=== PATIENT | female | born 1960 | race Caucasian/White ===

== ENCOUNTER 2019-10-08 10:30 | Emergency (ER) | payer MEDICARE, SELFPAY ==
--- NOTE | ~2019-10-08 | CT_ITS ---
EXAMINATION: CT abdomen pelvis wo con DATE: 10/08/2019 12:32 INDICATION: Generalized abdominal pain. TECHNIQUE: Computed tomography (CT) of the abdomen and pelvis was performed without intravenous contr ast. Automated exposure control and iterative reconstruction technique were employed. The dose-length product was 1365.13 mGy-cm. COMPARISON: CT abdomen and pelvis 04/26/2017 FINDINGS: The visualized portions of the lung bases demonstrate mild atelectasis. No pleural effusion . The heart size is normal. No pericardial effusion. There is diffuse hepatic steatosis. There is a g allstone in the gallbladder, which is normal in size. The spleen, pancreas, adrenal glands, and kidne ys are normal. There is no urolithiasis. There are no dilated loops of bowel. The appendix is normal. There are no pathologically enlarged lymph nodes. There is no free intraperitoneal fluid. There is a left supraumbilical ventral hernia containing fat. There is a chronic compression fracture of T12 wi th changes of vertebroplasty. There is mild chronic anterior wedging of multiple thoracic vertebral b odies. There is an electrode in the right S3 neural foramina. IMPRESSION: 1. Diffuse hepatic steatosis. 2. Cholelithiasis. No evidence of acute cholecystitis. 3. Left supraumbilical ventral hernia containing fat. Reviewed, dictated and finalized at location A. EUR/MASSEUSE
[2019-10-08 11:16] VITALS: BP 141/79; PULSE 106; RESP 20; TEMP 36.9; O2SAT 96
--- NOTE | 2019-10-08 11:18 | ED.ABDPAIN ---
HPI - Abdominal Pain General Chief Complaint: Abdominal Pain Stated Complaint: Hernia Time Seen by Provider: 10/08/19 11:19 Source: patient and RN notes reviewed Limitations: no limitations History of Present Illness HPI narrative: Patient presents with abdominal pain. Says it seems to be right in the middle of her abdomen above her umbilicus she is concerned that she might have a hernia. She says that she has this swelling when she sits up in the middle upper abdomen. Says that it has been going on for several months. She denies any other associated symptoms. MD elicited complaint: abdominal pain Pertinent past history: none Onset (ago): hour(s) (4) Pain Consistency: constant Location: diffuse Severity: moderate Quality: aching, fullness and dull Radiation: other (Supra Umbilical) Migration to: no migration Exacerbating factors: movement Relieving factors: nothing Associated symptoms: denies other symptoms Related Data Home Medications Medication Instructions Recorded Confirmed cyclobenzaprine 10 mg PO TID 10/08/19 10/08/19 gabapentin 600 mg PO TID 10/08/19 10/08/19 hydroxyzine pamoate 25 mg PO DAILY 10/08/19 10/08/19 magnesium oxide 400 mg PO DAILY 10/08/19 10/08/19 metformin 500 mg PO DAILY 10/08/19 10/08/19 omeprazole 500 mg PO DAILY 10/08/19 10/08/19 sertraline 100 mg PO DAILY 10/08/19 10/08/19 trazodone 50 mg PO HS 10/08/19 10/08/19 Allergies Allergy/AdvReac Type Severity Reaction Status Date / Time eucalyptus Allergy Severe ANAPHYLAXIS Verified 04/11/19 17:10 Penicillins Allergy Mild Rash Verified 04/11/19 17:10 adhesive Allergy Unknown BLISTERS Verified 04/11/19 17:10 diclofenac Allergy Unknown PT DOESNT Verified 04/11/19 17:10 KNOW Iodine and Iodide Containing Allergy Unknown Anaphylaxis Verified 10/08/19 11:05 Produc metaxalone Allergy Unknown PT DOESNT Verified 04/11/19 17:10 KNOW nabumetone Allergy Unknown PT DOESNT Verified 04/11/19 17:10 KNOW peanut Allergy Unknown Swelling Verified 10/08/19 11:05 Contrast Media Allergy Unknown ANAPHYLAXIS Uncoded 04/11/19 17:10 Review of Systems Constitutional: Constitutional: Denies chills and Denies fever(s) Cardiovascular: Cardiovascular: Reports no additional cardiovascular complaints Respiratory: Respiratory: Reports no additional respiratory complaints Gastrointestinal: Gastrointestinal: Denies constipation, Denies diarrhea, Denies nausea and Denies vomiting Genitourinary: Genitourinary: Denies dysuria Musculoskeletal: Musculoskeletal: Reports no additional musculoskeletal complaints Neurologic: Reports system reviewed and no additional complaints, except as documented PMFSH Past Medical History Medical History (Updated 10/08/19 @ 15:49 by Juan Carlos Solis MD) GERD (gastroesophageal reflux disease) Surgical History Surgical History (Updated 10/08/19 @ 13:48 by Juan Carlos Solis MD) H/O knee surgery H/O oophorectomy H/O tubal ligation H/O: hysterectomy History of tonsillectomy Hx of breast reduction, elective Family History Family History Mother Family history of thyroid disease Sibling Diabetes mellitus Other Family history of allergic disorder Social History Social History (Updated 10/08/19 @ 13:49 by Juan Carlos Solis MD) Smoking status: Never smoker Alcohol intake: never Substance use type: marijuana Exam Const: General: healthy appearing, no acute distress and alert Nutritional Appearance: well nourished and obese centrally obese Orientation/consciousness: patient oriented x3 HENMT: Head: normal to inspection Ears: external ears normal General nose exam: Normal external nose present Face and sinus: normal facial exam Mouth: Yes moist mucous membranes Eyes: Conjunctivae: conjunctivae normal Pupils: Equal, round and reactive pupils present EOM: EOMs intact bilaterally Neck: Neck: normal visual inspection Resp: Effort & Inspection:
[2019-10-08 11:57] LABS: Basophils Absolute Auto 0.05 K/mm3 (0.00-0.10); Basophils Percent Auto 0.8 % (0.0-1.0); Eosinophils Absolute Auto 0.22 K/mm3 (0.02-0.50); Eosinophils Percent Auto 3.5 % (1.0-6.0); Hematocrit 38.9 % (35.0-49.0); Hemoglobin 12.6 g/dL (12.0-15.0); Immature Granulocyte Absolute 0.02 K/mm3 (0.00-0.00); Immature Granulocyte Percent A 0.3 % (0.0-0.0); Lymphocytes Absolute Auto 1.62 K/mm3 (1.10-4.50); Lymphocytes Percent Auto 25.5 % (18.0-42.0); Mean Corpuscular HGB Conc 32.4 g/dL (32.0-36.0); Mean Corpuscular Hemoglobin 26.6 pg (27.0-31.0); Mean Corpuscular Volume 82.2 fL (78.0-102.0); Mean Platelet Volume 9.6 fl (9.2-11.8); Monocytes Absolute Auto 0.49 K/mm3 (0.10-0.90); Monocytes Percent Auto 7.7 % (2.0-11.0); Neutrophils Percent Auto 62.2 % (50.0-70.0); Platelet Count Result 234 K/mm3 (150-420); Red Blood Count 4.73 M/mm3 (4.20-5.40); Red Cell Distribution Width 14.1 % (11.6-14.4); White Blood Count 6.4 K/mm3 (4.8-10.8)
[2019-10-08 12:16] LABS: Alanine Aminotransferase 31 U/L (14-59); Albumin Level 3.5 g/dL (3.4-5.0); Alkaline Phosphatase 90 U/L (46-116); Aspartate Amino Transferase 19 U/L (15-37); Bilirubin,Total 0.3 mg/dL (0.00-1.00); Blood Urea Nitrogen 12 mg/dL (7-18); CRP 0.3 mg/dL (0.0-0.9); Carbon Dioxide 25 mmol/L (21-32); Chloride 106 mmol/L (98-108); Estimated CRCL calculation 72 ml/min; Estimated Glomerular Filt Rate > 60; Glucose 90 mg/dL (70-99); Lipase 102 U/L (73-393); Osmolality Calculated 289 mOsm/kg (285-295); Sodium 140 mmol/L (136-145); Total Protein 7.2 g/dL (6.4-8.2)
[2019-10-08 13:01] LABS: Appearance Urine Clear (Clear); Bilirubin Urine Negative (Negative); Color Urine Yellow (Yellow); Glucose Urine UA Negative (Negative); Ketones Urine Negative (Negative); Leukocyte Esterase Ur 1+ (Negative); Nitrate Urine Negative (Negative); Protein Urine Negative (Negative); Urobilinogen Urine 0.2 mg/dL (0.2-1.0)
[2019-10-08 13:07] LABS: Add Urine Microscopic? YES; Blood Urine Trace-Intact (Negative); RBC Urine 0-2 /hpf (0-2)
[2019-10-08 13:08] LABS: Bacteria Urine Trace /hpf; Squamous Epithelial Cell Urine Rare /hpf (Few)
[2019-10-08 13:47] VITALS: BP 130/85; PULSE 71; RESP 18; O2SAT 98
== END 2019-10-08 13:45 | disposition home or self-care (01) ==
PROVIDERS: Emergency Provider Emergency Medicine; PCP Internal Medicine
DX: K43.9 Ventral hernia without obstruction or gangrene (principal)
CPT/HCPCS: 36415; 74176; 80053; 81001; 83690; 85025; 86140; 99283; 99284

== ENCOUNTER 2019-11-25 09:54 | Outpatient (CLI) | payer MEDICARE, SELFPAY ==
--- NOTE | ~2019-11-25 | XR_ITS ---
EXAMINATION: XR ribs LT 2V w CXR 2V DATE: 11/25/2019 10:44 INDICATION: Left chest wall pain post fall TECHNIQUE: Frontal and lateral views of the chest and 3 views of the left ribs were obtained. COMPARISON: 04/11/2019 and 03/08/2014 FINDINGS: No rib fractures identified. Again seen are small lung volumes due in part to moderate thoracic kypho sis with severe spondylosis and chronic mild anterior wedging of a few levels in the midthoracic spin e. Vertebroplasty at a chronic L1 compression fracture. Mild bibasilar atelectasis. No pulmonary amber a, pleural effusion or pneumothorax. Cardiomediastinal silhouette is normal. IMPRESSION: 1. No evident rib fractures. 2. Small lung volumes with mild bibasilar atelectasis. 3. Severe thoracic spine spondylosis with several chronic thoracic and upper lumbar compression fract ures post prior L1 vertebroplasty. Reviewed, dictated and finalized at location A. IMPRESSION: 1. No evident rib fractures. 2. Small lung volumes with mild bibasilar atelectasis. 3. Severe thoracic spine spondylosis with several chronic thoracic and upper ronni mbar compression fractures post prior L1 vertebroplasty.
== END 2019-11-25 09:55 | disposition home or self-care (01) ==
PROVIDERS: PCP Internal Medicine; Visit Provider Internal Medicine
DX: R07.89 Other chest pain (principal)
CPT/HCPCS: 71046; 71100

== ENCOUNTER 2020-01-25 11:33 | Outpatient (CLI) | payer MEDICARE, SELFPAY ==
[2020-01-25 11:49] LABS: Basophils Absolute Auto 0.05 K/mm3 (0.00-0.10); Basophils Percent Auto 0.6 % (0.0-1.0); Eosinophils Absolute Auto 0.31 K/mm3 (0.02-0.50); Eosinophils Percent Auto 3.8 % (1.0-6.0); Hematocrit 40.3 % (35.0-49.0); Hemoglobin 12.8 g/dL (12.0-15.0); Immature Granulocyte Absolute 0.03 K/mm3 (0.00-0.00); Immature Granulocyte Percent A 0.4 % (0.0-0.0); Lymphocytes Absolute Auto 2.28 K/mm3 (1.10-4.50); Lymphocytes Percent Auto 28.3 % (18.0-42.0); Mean Corpuscular HGB Conc 31.8 g/dL (32.0-36.0); Mean Corpuscular Hemoglobin 26.4 pg (27.0-31.0); Mean Corpuscular Volume 83.3 fL (78.0-102.0); Mean Platelet Volume 9.6 fl (9.2-11.8); Monocytes Absolute Auto 0.55 K/mm3 (0.10-0.90); Monocytes Percent Auto 6.8 % (2.0-11.0); Neutrophils Absolute Auto 4.9 K/mm3 (1.7-7.2); Neutrophils Percent Auto 60.1 % (50.0-70.0); Platelet Count Result 276 K/mm3 (150-420); Red Blood Count 4.84 M/mm3 (4.20-5.40); Red Cell Distribution Width 13.8 % (11.6-14.4); White Blood Count 8.1 K/mm3 (4.8-10.8)
[2020-01-25 11:50] LABS: Add Urine Microscopic? YES; Appearance Urine Sl Cloudy (Clear); Bilirubin Urine Negative (Negative); Blood Urine Negative (Negative); Color Urine Yellow (Yellow); Glucose Urine UA Negative (Negative); Ketones Urine Negative (Negative); Leukocyte Esterase Ur 2+ (Negative); Nitrate Urine Negative (Negative); Protein Urine Negative (Negative); Specific Grav Ur 1.025 (1.010-1.020); Urobilinogen Urine 0.2 mg/dL (0.2-1.0)
[2020-01-25 12:02] LABS: Bacteria Urine 1+ /hpf; RBC Urine None seen /hpf (0-2); Renal Epithelial Cells Urine Few /hpf; Squamous Epithelial Cell Urine Few /hpf (Few); WBC Urine 16-20 /hpf (0-3)
[2020-01-25 13:14] LABS: Alanine Aminotransferase 33 U/L (14-59); Albumin Level 3.9 g/dL (3.4-5.0); Alkaline Phosphatase 95 U/L (46-116); Amylase 43 U/L (25-115); Anion Gap 10.7 mmol/L (7-16); Aspartate Amino Transferase 24 U/L (15-37); Bilirubin,Total 0.3 mg/dL (0.00-1.00); Blood Urea Nitrogen 19 mg/dL (7-18); Calcium 9.6 mg/dL (8.5-10.1); Carbon Dioxide 30 mmol/L (21-32); Chloride 102 mmol/L (98-108); Estimated Glomerular Filt Rate 60; Glucose 128 mg/dL (70-99); Lipase 96 U/L (73-393); Osmolality Calculated 290 mOsm/kg (285-295); Potassium 4.7 mmol/L (3.5-5.1); Sodium 138 mmol/L (136-145); Total Protein 7.1 g/dL (6.4-8.2)
== END 2020-01-25 11:34 | disposition home or self-care (01) ==
LOC: CHSLAB 11:35
PROVIDERS: PCP Internal Medicine; Visit Provider Internal Medicine
DX: R11.0 Nausea (principal); R10.13 Epigastric pain
CPT/HCPCS: 36415; 80053; 81001; 82150; 83690; 85025; 87086

== ENCOUNTER 2020-02-23 15:19 | Emergency (ER) | payer MEDICARE, SELFPAY ==
[2020-02-23 15:20] VITALS: BP 133/83; PULSE 89; RESP 20; TEMP 36.8; O2SAT 98
--- NOTE | 2020-02-23 15:42 | ED.GENADULT ---
HPI - General Adult General Chief complaint: Fever Stated complaint: sent by nati History of Present Illness HPI narrative: Pt states that since saturday she has had a fever on and off. She states that she just got over a kidney infection, and she thinks that is what the problem is again. She isn't vomiting, SOB, nauseated, or other issues. She feels like she has to pee all the time Onset (ago): day(s) (3) Radiation: non-radiation and back (has pain there all the time. she said its her kidneys, but her doc said it was her back pain) Severity: mild Pain Consistency: constant Relieving factors: none Exacerbating factors: none Associated symptoms: denies other symptoms and fever/chills Related Data Home Medications Medication Instructions Recorded Confirmed cyclobenzaprine 10 mg PO TID 10/08/19 02/23/20 gabapentin 600 mg PO TID 10/08/19 02/23/20 hydroxyzine pamoate 25 mg PO DAILY 10/08/19 02/23/20 magnesium oxide 400 mg PO DAILY 10/08/19 02/23/20 metformin 500 mg PO DAILY 10/08/19 02/23/20 omeprazole 20 mg PO DAILY 10/08/19 02/23/20 sertraline 100 mg PO DAILY 10/08/19 02/23/20 trazodone 50 mg PO HS 10/08/19 02/23/20 Allergies Allergy/AdvReac Type Severity Reaction Status Date / Time eucalyptus Allergy Severe ANAPHYLAXIS Verified 04/11/19 17:10 Penicillins Allergy Mild Rash Verified 04/11/19 17:10 adhesive Allergy Unknown BLISTERS Verified 04/11/19 17:10 diclofenac Allergy Unknown PT DOESNT Verified 04/11/19 17:10 KNOW Iodine and Iodide Containing Allergy Unknown Anaphylaxis Verified 10/08/19 11:05 Produc metaxalone Allergy Unknown PT DOESNT Verified 04/11/19 17:10 KNOW nabumetone Allergy Unknown PT DOESNT Verified 04/11/19 17:10 KNOW peanut Allergy Unknown Swelling Verified 10/08/19 11:05 Contrast Media Allergy Unknown ANAPHYLAXIS Uncoded 04/11/19 17:10 Review of Systems Review of Systems: All systems reviewed & are unremarkable except as noted in HPI and below Constitutional: Constitutional: Denies chills, Denies fatigue, Reports fever(s) and Denies weakness Eyes: Eyes: Reports no additional eye complaints ENT: Reports system reviewed and no additional complaints, except as documented, Denies dysphagia, Denies vertigo, Denies dizziness, Denies epistaxis, Denies nasal congestion and Denies sore throat Cardiovascular: Cardiovascular: Reports no additional cardiovascular complaints, Denies chest pain, Denies rapid heart rate, Denies radiating jaw, neck or arm pain and Denies slow heart rate Respiratory: Respiratory: Reports no additional respiratory complaints, Denies chest congestion, Denies cough, Denies dyspnea and Denies wheezing Gastrointestinal: Gastrointestinal: Reports no additional gastrointestinal complaints, Denies abdominal pain, Denies bloating, Denies constipation, Denies heartburn, Denies diarrhea, Denies nausea and Denies vomiting Genitourinary: Genitourinary: Reports as per HPI, Denies abnormal vaginal bleeding, Denies hematuria, Denies nocturia, Denies genital lesions, Denies dysuria, Denies pelvic pain, Denies flank pain, Denies urinary incontinence and Denies vaginal discharge Musculoskeletal: Musculoskeletal: Denies no additional musculoskeletal complaints Neurologic: Reports system reviewed and no additional complaints, except as documented Psychiatric: Psychiatric: Reports no additional psychiatric complaints Endocrine: Endocrine: Reports no additional endocrine complaints Hematologic/Lymphatic: Hematologic/Lymphatic: Reports no additional hematologic/lymphatic complaints Allergic/Immunologic: Allergic/Immunologic: Reports no additional allergic/immunologic complaints PMFSH Past Medical History Medical History GERD (gastroesophageal reflux disease) Surgical History Surgical History H/O knee surgery H/O oophorectomy H/O tubal ligation H/O: hysterectomy H
[2020-02-23 16:31] LABS: Appearance Urine Clear (Clear); Bilirubin Urine Negative (Negative); Color Urine Yellow (Yellow); Glucose Urine UA Negative (Negative); Ketones Urine Negative (Negative); Leukocyte Esterase Ur 1+ (Negative); Nitrate Urine Negative (Negative); Protein Urine Negative (Negative); Urobilinogen Urine 0.2 mg/dL (0.2-1.0); pH Urine 5.5 (5.0-8.0)
[2020-02-23 16:42] LABS: Add Urine Microscopic? YES; Blood Urine Trace-Intact (Negative); RBC Urine 0-2 /hpf (0-2); Renal Epithelial Cells Urine None seen /hpf; Squamous Epithelial Cell Urine Few /hpf (Few); Transitional Epi Cells Urine Rare /hpf
[2020-02-23 17:19] VITALS: RESP 14; O2SAT 100
== END 2020-02-23 17:25 | disposition home or self-care (01) ==
PROVIDERS: Emergency Provider Emergency Medicine; PCP Internal Medicine
DX: N39.0 Urinary tract infection, site not specified (principal); K21.9 Gastro-esophageal reflux disease without esophagitis
CPT/HCPCS: 81001; 99283

== ENCOUNTER 2020-04-28 13:05 | Emergency (ER) | payer MEDICARE, SELFPAY ==
--- NOTE | ~2020-04-28 | XR_ITS ---
[XR ribs LT 2V ] INDICATION: Left rib pain TECHNIQUE: Frontal projection of the upper left ribs, frontal projection of the lower left ribs, obli que projection of all the left ribs, frontal inspiratory chest x-ray for interpretation. FINDINGS: There are no displaced rib fractures identified. There are no soft tissue abnormality see n. The lungs are clear. There are vertebroplasty changes at L1. IMPRESSION: 1:No displaced rib fractures. Reviewed, dictated and finalized at location A.
[2020-04-28 13:15] VITALS: BP 147/89; PULSE 97; RESP 26; O2SAT 99
--- NOTE | 2020-04-28 13:31 | PHAR ---
SPOKE W/RN DENNYS IN ER; PRESCRIBER IS AWARE OF NSAID ALLERGIES LISTED (NABUMETONE, DICLOFENAC). TLS
[2020-04-28] MEDS: KETOROLAC (*BKC) 60 MG/2 ML VIAL IM (13:52)
--- NOTE | 2020-04-28 14:35 | ED.FALL ---
HPI - Fall General Chief Complaint: Fall Stated Complaint: fell on L side of abd, pain with breathing Source: patient Mode of arrival: ambulatory Limitations: no limitations History of Present Illness HPI Narrative: this is a 60-year-old female presents after she sustained a fall after she tripped injuring her left rib area with some mild bruising with no shortness of breath no chest pain no nausea vomiting does have some achiness an in the left mid rib area has good range of motion in her neck with no headaches no nausea vomiting no fever chills. MD complaint: fall Onset (ago): hour(s) Fall from: standing Fall witnessed: no Place fall occurred: home Loss of consciousness: none Prolonged down time: no Context: tripped/slipped Location of injury: other ( Left rib area) Severity: moderate Severity scale (1-10): 6 Quality: aching Associated symptoms (after fall): denies Related Data Home Medications Medication Instructions Recorded Confirmed cyclobenzaprine 10 mg PO TID 10/08/19 04/28/20 gabapentin 600 mg PO TID 10/08/19 04/28/20 hydroxyzine pamoate 25 mg PO DAILY 10/08/19 04/28/20 magnesium oxide 400 mg PO DAILY 10/08/19 04/28/20 metformin 500 mg PO DAILY 10/08/19 04/28/20 omeprazole 20 mg PO DAILY 10/08/19 04/28/20 sertraline 100 mg PO DAILY 10/08/19 04/28/20 trazodone 50 mg PO HS 10/08/19 04/28/20 Allergies Allergy/AdvReac Type Severity Reaction Status Date / Time eucalyptus Allergy Severe ANAPHYLAXIS Verified 04/11/19 17:10 Penicillins Allergy Mild Rash Verified 04/11/19 17:10 adhesive Allergy Unknown BLISTERS Verified 04/11/19 17:10 diclofenac Allergy Unknown PT DOESNT Verified 04/11/19 17:10 KNOW Iodine and Iodide Containing Allergy Unknown Anaphylaxis Verified 10/08/19 11:05 Produc metaxalone Allergy Unknown PT DOESNT Verified 04/11/19 17:10 KNOW nabumetone Allergy Unknown PT DOESNT Verified 04/11/19 17:10 KNOW peanut Allergy Unknown Swelling Verified 10/08/19 11:05 Contrast Media Allergy Unknown ANAPHYLAXIS Uncoded 04/11/19 17:10 Review of Systems Review of Systems: All systems reviewed & are unremarkable except as noted in HPI and below PMFSH Past Medical History Medical History GERD (gastroesophageal reflux disease) Surgical History Surgical History H/O knee surgery H/O oophorectomy H/O tubal ligation H/O: hysterectomy History of tonsillectomy Hx of breast reduction, elective Family History Family History Mother Family history of thyroid disease Sibling Diabetes mellitus Other Family history of allergic disorder Social History Social History Smoking status: Never smoker Alcohol intake: never Substance use type: marijuana Exam Const: General: no acute distress and alert Orientation/consciousness: patient oriented x3 HENMT: Head: normal to inspection Eyes: Conjunctivae: conjunctivae normal Pupils: Equal, round and reactive pupils present EOM: EOMs intact bilaterally Neck: Neck: normal visual inspection Chest: Chest palpation & inspection: normal inspection of the chest Other: Tender mid axillary rib pain with palpation with mild bruising Resp: Effort & Inspection: normal respiratory effort Auscultation: clear to auscultation bilaterally Cardio: Rate: regular rate Rhythm: regular rhythm GI: Auscultation: normal bowel sounds : General: Yes no CVA tenderness Skin: General skin exam: normal color Rashes: no rashes Neuro: General: patient oriented x3 Extrem: General: normal to inspection Psych: Appearance: grossly normal and well kempt Mental Status: mental status grossly normal Affect: normal affect Thought content: Yes Normal thought content present Course Course Emergency Course: after IM Toradol patient d
[2020-04-28 14:52] VITALS: BP 126/74; PULSE 67; O2SAT 94
== END 2020-04-28 14:53 | disposition home or self-care (01) ==
PROVIDERS: Emergency Provider Emergency Medicine; PCP Internal Medicine
DX: S20.212A Contusion of left front wall of thorax, initial encounter (principal); K21.9 Gastro-esophageal reflux disease without esophagitis; W01.0XXA Fall on same level from slipping, tripping and stumbling without subsequent striking against object, initial encounter
CPT/HCPCS: 71100; 96372; 99283; J1885

== ENCOUNTER 2020-10-12 16:29 | Outpatient (CLI) | payer MEDICARE, SELFPAY ==
--- NOTE | ~2020-10-12 | XR_ITS ---
EXAMINATION: XR knee LT min 4V DATE: 10/12/2020 16:51 INDICATION: Left knee pain. TECHNIQUE: 4 views of left knee were obtained. COMPARISON: Left knee radiographs 06/11/2011 FINDINGS: Bone alignment is normal. No fracture. There is moderate osteoarthritis of medial compartme nt and mild osteoarthritis of lateral and patellofemoral compartments. No knee joint effusion. There are loose bodies in the knee joint. IMPRESSION: 1. Moderate left knee osteoarthritis. 2. Left knee joint loose bodies. Reviewed, dictated and finalized at location A. 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
== END 2020-10-12 16:30 | disposition home or self-care (01) ==
LOC: CHSIMG 16:32
PROVIDERS: PCP Internal Medicine; Visit Provider Internal Medicine
DX: M25.562 Pain in left knee (principal)
CPT/HCPCS: 73564

== ENCOUNTER 2021-01-24 16:39 | Outpatient (RCR) | payer MEDICARE, SELFPAY ==
--- NOTE | 2021-01-25 13:25 | PTOPEVAL ---
Thank you for referring Peggy Cornell to [facility].? The patient is scheduled to be seen for therapy? ____x/week for ___ weeks. Please review, sign, date and return this plan of care EVIE. I agree with and certify that the following plan of care is medically necessary. Referring Physician Date Admitting Provider: Attending Provider: Sofia Her MD Referring Provider: *PT Outpatient Evaluation Start: 01/24/21 16:49 Freq: Status: Active Protocol: Document 01/24/21 17:00 [facility] [email or web address]] (Rec: 01/24/21 17:53 [facility] [email or web address]) Therapy Assessment Status Assessment Status Assessment Status Evaluation Outpatient Past Medical History Neurological History Hx Neurologic Surgery Yes: BRAIN SURGERY FOR HYDROCEPHALUS Hx Other Neurological Disorders Yes: NEUROPATHY Cardiovascular History Hx Aneurysm Yes: AAA Hx Other Cardiac Disorders Yes: NARROWING OF AORTIC AND MITRAL VALVE Gastrointestinal History Hx Gastroesophageal Reflux Disease Yes Musculoskeletal History Hx Back Pain Yes Hx Orthopedic Surgery Yes: R KNEE Hx Other Musculoskeletal Disorders Yes: CARPAL TUNNEL Endocrine History Hx Diabetes Yes: DM II HEENT History Hx Tonsillectomy Yes Reproductive History Hx Post Menopausal Yes Psychosocial History Hx Depression Yes Hx Post Traumatic Stress Disorder Yes Evaluation Information Problem Diagnosis L knee pain Onset 01/12/21 Additional Evaluation Detail LEFS= 82% Subjective Information Peggy Cornell is a 61 year old Query Text:As Reported By Patient/ female who [facility] w L knee pain. Fell Fall 2019, onto metal. Has had pain since then. Reports pain started in 1997. Medical marijuana PRN for pain relief, and icy hot PRN. Lives at home with ; 4 stairs to enter home, 15 stairs to basement. reports pt. 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
--- NOTE | 2021-03-31 13:15 | PCPTNOTE ---
03/31/21 - DC patient from skilled PT services as she is . ZiaTF
== END 2021-01-27 14:49 | disposition home or self-care (01) ==
LOC: CHSPT 16:39
PROVIDERS: PCP Internal Medicine; Visit Provider Internal Medicine
DX: M25.562 Pain in left knee (principal); M17.12 Unilateral primary osteoarthritis, left knee
CPT/HCPCS: 97110; 97161

== ENCOUNTER 2021-02-22 14:25 | Outpatient (CLI) | payer MEDICARE, SELFPAY ==
--- NOTE | ~2021-02-22 | MM_ITS ---
EXAMINATION: MM screening [facility] BI w steff HISTORY: Screening TECHNIQUE: Craniocaudal and mediolateral oblique 3-D tomosynthesis images were obtained and synthetic 2-D images were generated. CAD analysis was submitted and interpreted. COMPARISON: Comparison to multiple prior studies sequentially, with oldest reviewed study dated 06/05. BREAST PARENCHYMAL COMPOSITION: There are scattered areas of fibroglandular density. FINDINGS: There is no evidence of suspicious mass, calcification, or architectural distortion to sugg est malignancy in either breast. There has been no suspicious interval change. IMPRESSION: 1. No mammographic evidence of malignancy. 2. Recommend routine screening mammography in one year. BI-RADS Category 1: Negative Reviewed, dictated and finalized at location A.
--- NOTE | ~2021-02-22 | DEXA_ITS ---
Bone Density Report Name: Peggy Cornell Age: 61 Sex: Female Ethnicity: White Date of : 1960 Indication: osteopenia; height loss; prior fracture; asthma or emphysema; Referring Provider: Zaira, Tanisha Schwab Study: Bone densitometry was performed. Exam Date: February 22, 2021 Accession number: [id number] Bone Density: Region BMD T-score Z-score Classification AP Spine(L1-L4) 0.898 -1.4 0.2 Osteopenia Femoral Neck (Left) 0.701 -1.3 0.0 Osteopenia Total Hip (Left) 0.874 -0.6 0.5 Normal Femoral Neck (Right) 0.702 -1.3 0.1 Osteopenia Total Hip (Right) 0.876 -0.5 0.5 Normal Femoral Neck Mean 0.702 -1.3 0.0 Osteopenia Total Hip Mean 0.875 -0.5 0.5 Normal World Health Organization criteria for BMD impression classify patients as: Normal (T-score at or above -1.0), Osteopenia (T-score between -1.0 and -2.5), or Osteoporosis (T-score at or below -2.5). 10-year Fracture Risk(1): Major Osteoporotic Fracture 13% Hip Fracture 1.1% Reported Risk Factors: [place] (), Neck BMD=0.701, BMI=28.3, previous fracture (1) FRAX(R) Version 3.08. Fracture probability calculated for an untreated patient. Fracture probability may be lower if the patient has received treatment. Previous Exams: Region Exam Age BMD T-score BMD Change BMD Change Date g/cm2 vs Baseline vs Previous AP Spine (L1-L4) 02/22/2021 61 0.898 -1.4 -0.073 (-7.5%) -0.073 (-7.5%) 10/10/2012 52 0.971 -0.7 Total Hip(Left) 02/22/2021 61 0.874 -0.6 0.077 (9.7%)# 0.077 (9.7%)# 10/10/2012 52 0.797 -1.2 Total Hip(Right) 02/22/2021 61 0.876 -0.5 0.034 (4.0%)# 0.034 (4.0%)# 10/10/2012 52 0.842 -0.8 *Denotes significance at 95% confidence level, LSC for AP Spine = 0.022 g/cm2, LSC for Total Hip = 0.027 g/cm2 # Denotes dissimilar scan types or analysis methods Clinical Information Provided by Patient: Has had a low trauma fracture Has used the following medications: Vitamin D Has the following medical conditions: Asthma or Emphysema Patient maximum height was 65 Drinks caffeinated beverages Onset of menses at age 12 Number of children 2 Impression: The patient has low bone mass, based on the Total Spine T-score. The patient has risk factors, including: previous fracture. No significant bone loss was observed. Discussion: BONE DENSITY IS LOW AT ONE OR MORE SKELETAL SITES. This patient's lowest T-score is low at one or more skelet
== END 2021-02-22 14:26 | disposition home or self-care (01) ==
LOC: CHSIMG 14:28
PROVIDERS: PCP Internal Medicine; Visit Provider Nurse Practitioner Family
DX: Z12.31 Encounter for screening mammogram for malignant neoplasm of breast (principal); Z78.0 Asymptomatic menopausal state
CPT/HCPCS: 77063; 77067; 77080

== ENCOUNTER 2021-02-26 21:08 | Emergency (ER) | payer MEDICARE, SELFPAY ==
[2021-02-26 21:41] VITALS: BP 143/91; PULSE 69; RESP 20; TEMP 36.1; O2SAT 99
--- NOTE | 2021-02-26 21:45 | ED.NAVMDI ---
HPI - Nausea/Vomiting/Diarrhea General Chief complaint: Nausea/Vomiting/Diarrhea Stated complaint: headache,vomitting Source: patient and RN notes reviewed Mode of arrival: ambulatory Limitations: no limitations History of Present Illness MD elicited complaint: nausea, vomiting and diarrhea Onset (ago): week(s) (1) Description of vomiting: food contents and bilious Description of diarrhea: watery Associated nausea: Yes Associated abdominal pain: Yes Location of pain: diffuse Pain consistency: intermittent Severity: moderate Quality: cramping Exacerbating factors: eating and vomiting Relieving factors: none Associated symptoms: fever/chills (subjective) and headaches Related Data Home Medications Medication Instructions Recorded Confirmed cyclobenzaprine 10 mg PO TID 10/08/19 02/26/21 hydroxyzine pamoate 25 mg PO DAILY 10/08/19 02/26/21 magnesium oxide 400 mg PO DAILY 10/08/19 02/26/21 metformin 500 mg PO DAILY 10/08/19 02/26/21 omeprazole 20 mg PO DAILY 10/08/19 02/26/21 sertraline 100 mg PO DAILY 10/08/19 02/26/21 trazodone 50 mg PO HS 10/08/19 02/26/21 ropinirole 0.25 mg PO HS 02/26/21 02/26/21 Allergies Allergy/AdvReac Type Severity Reaction Status Date / Time eucalyptus Allergy Severe ANAPHYLAXIS Verified 04/11/19 17:10 Penicillins Allergy Mild Rash Verified 04/11/19 17:10 adhesive Allergy Unknown BLISTERS Verified 04/11/19 17:10 diclofenac Allergy Unknown PT DOESNT Verified 04/11/19 17:10 KNOW Iodine and Iodide Containing Allergy Unknown Anaphylaxis Verified 10/08/19 11:05 Produc metaxalone Allergy Unknown PT DOESNT Verified 04/11/19 17:10 KNOW nabumetone Allergy Unknown PT DOESNT Verified 04/11/19 17:10 KNOW peanut Allergy Unknown Swelling Verified 10/08/19 11:05 Contrast Media Allergy Unknown ANAPHYLAXIS Uncoded 04/11/19 17:10 Review of Systems ENT: Denies sore throat Cardiovascular: Cardiovascular: Denies chest pain Respiratory: Respiratory: Denies dyspnea Gastrointestinal: Gastrointestinal: Denies constipation Genitourinary: Genitourinary: Denies dysuria Musculoskeletal: Musculoskeletal: Denies muscle cramps, Denies neck pain and Denies stiffness Integumentary/Breasts: Skin/Breast: Denies rash Neurologic: Denies dizziness PMFSH Past Medical History Medical History (Updated 02/27/21 @ 00:00 by Chela Damagaly) Depression GERD (gastroesophageal reflux disease) Peripheral neuropathy Type 2 diabetes mellitus Surgical History Surgical History H/O knee surgery H/O oophorectomy H/O tubal ligation H/O: hysterectomy History of tonsillectomy Hx of breast reduction, elective Family History Family History Mother Family history of thyroid disease Sibling Diabetes mellitus Other Family history of allergic disorder Social History Social History Smoking status: Never smoker Alcohol intake: never Substance use type: marijuana Gender identity (if verbalized by the patient): Female Exam Const: General: healthy appearing and no acute distress Nutritional Appearance: well nourished Orientation/consciousness: patient oriented x3 HENMT: Head: normal to inspection Ears: external ears normal Eyes: Cornea: corneas normal Pupils: Equal, round and reactive pupils present EOM: EOMs intact bilaterally Neck: Neck: normal visual inspection Resp: Effort & Inspection: normal respiratory effort Auscultation: clear to auscultation bilaterally Cardio: Rate: regular rate Rhythm: regular rhythm GI: GI Palp: Yes Soft to palpation, Yes Tenderness to palpation present (GI) (Moderate difuse), Yes Guarding due to palpation present (GI) and No Rebound tenderness present Auscultation: normal bowel sounds : General: Yes no CVA tenderness Back/Spine/Pelvis: Cervical Spine: cervical ROM normal Thoracic/Lum
[2021-02-26] MEDS: SODIUM CHLORIDE 0.9% IV 1,000 ML 999 ML IV CONT (22:05)
[2021-02-26 22:33] LABS: Basophils Absolute Auto 0.03 K/mm3 (0.00-0.10); Basophils Percent Auto 0.4 % (0.0-1.0); Eosinophils Absolute Auto 0.02 K/mm3 (0.02-0.50); Eosinophils Percent Auto 0.2 % (1.0-6.0); Hematocrit 44.5 % (35.0-49.0); Hemoglobin 14.6 g/dL (12.0-15.0); Immature Granulocyte Absolute 0.04 K/mm3 (0.00-0.00); Immature Granulocyte Percent A 0.5 % (0.0-0.0); Lymphocytes Percent Auto 18.1 % (18.0-42.0); Mean Corpuscular HGB Conc 32.8 g/dL (32.0-36.0); Mean Corpuscular Hemoglobin 28.1 pg (27.0-31.0); Mean Corpuscular Volume 85.6 fL (78.0-102.0); Mean Platelet Volume 10.1 fl (9.2-11.8); Monocytes Absolute Auto 0.68 K/mm3 (0.10-0.90); Monocytes Percent Auto 8.2 % (2.0-11.0); Neutrophils Percent Auto 72.6 % (50.0-70.0); Platelet Count Result 175 K/mm3 (150-420); Red Cell Distribution Width 14.7 % (11.6-14.4); White Blood Count 8.3 K/mm3 (4.8-10.8)
[2021-02-26 22:40] LABS: Add Urine Microscopic? YES; Appearance Urine Clear (Clear); Bilirubin Urine Negative (Negative); Blood Urine 2+ (Negative); Color Urine Yellow (Yellow); Glucose Urine UA Negative (Negative); Ketones Urine Trace (Negative); Leukocyte Esterase Ur Trace LEU/UL (Negative); Nitrate Urine Negative (Negative); Protein Urine 1+ (Negative); Specific Grav Ur 1.015 (1.010-1.020); Urobilinogen Urine 0.2 mg/dL (0.2-1.0); pH Urine 6.5 (5.0-8.0)
[2021-02-26 22:43] LABS: Alanine Aminotransferase 18 U/L (14-59); Albumin Level 3.6 g/dL (3.4-5.0); Alkaline Phosphatase 60 U/L (46-116); Anion Gap 14 mmol/L (8-16); Aspartate Amino Transferase 11 U/L (15-37); Bilirubin,Total 0.4 mg/dL (0.00-1.00); Blood Urea Nitrogen 13 mg/dL (7-18); Calcium 9.1 mg/dL (8.5-10.1); Carbon Dioxide 25 mmol/L (21-32); Chloride 105 mmol/L (98-108); Estimated CRCL calculation 55 ml/min; Estimated Glomerular Filt Rate 58; Glucose 147 mg/dL (70-99); Lipase 49 U/L (73-393); Osmolality Calculated 301 mOsm/kg (285-295); Potassium 3.2 mmol/L (3.5-5.1); Sodium 144 mmol/L (136-145); Total Protein 7.2 g/dL (6.4-8.2)
[2021-02-26 22:54] LABS: CRP 1.6 mg/dL (0.0-0.9)
[2021-02-26 22:56] LABS: Influenza Control Valid (Valid)
[2021-02-26 22:56] LABS: SARS-CoV-2 Ag Negative (Negative)
[2021-02-26 23:02] LABS: Squamous Epithelial Cell Urine Few /hpf (Few); WBC Urine 0-3 /hpf (0-3)
[2021-02-26 23:03] LABS: Calcium Oxalate Crystals Urine Present /hpf
[2021-02-26 23:04] LABS: Bacteria Urine Trace /hpf; Mucus Urine Moderate /lpf
[2021-02-26] MEDS: metroNIDAZOLE 250 MG TABLET 500 MG PO (23:36)
[2021-02-26 23:49] VITALS: BP 140/91; PULSE 68; RESP 18; TEMP 36.9; O2SAT 97
== END 2021-02-26 23:50 | disposition home or self-care (01) ==
PROVIDERS: Emergency Provider Emergency Medicine; PCP Internal Medicine
DX: K52.9 Noninfective gastroenteritis and colitis, unspecified (principal); E87.6 Hypokalemia; Z20.822 Contact with and (suspected) exposure to COVID-19
CPT/HCPCS: 36415; 80053; 81001; 83690; 85025; 86140; 87426; 87804; 96360; 99283; A9270; C9803; J7030

== ENCOUNTER 2021-02-27 16:21 | Emergency (ER) | payer MEDICARE, SELFPAY ==
--- NOTE | ~2021-02-27 | CT_ITS ---
EXAMINATION: CT brain wo con INDICATION: Headache COMPARISON: 04/11/2019 TECHNIQUE: Standard unenhanced head CT. The dose-length product (DLP) was 605.33 mGy-cm. The mA was a djusted according to patient size. Iterative reconstruction technique was employed. FINDINGS: There is no acute intraparenchymal hemorrhage. No evidence of mass lesion. No evidence of a cute infarction. There is chronic moderate enlargement of the lateral, third, and fourth ventricles. Intracranial calcified cerebral atherosclerosis is noted. There are no extra-axial collections. There is no mass effect or midline shift. Changes of left occipital craniotomy are again noted. The visual ized sinuses and mastoid air cells are well aerated. IMPRESSION: 1. Chronic unchanged ventriculomegaly which can be seen in setting of normal pressure hydrocephalus. No significant interval change or acute findings identified. Reviewed, dictated and finalized at location A. IMPRESSION: 1. Chronic unchanged ventriculomegaly which can be seen in setting of normal pr essure hydrocephalus. No significant interval change or acute findings identifi ed.
[2021-02-27 16:25] VITALS: BP 145/87; PULSE 90; RESP 20; TEMP 36.4; O2SAT 96
--- NOTE | 2021-02-27 16:41 | ED.HA ---
HPI - Headache General Chief Complaint: Headache Stated Complaint: headache Time Seen by Provider: 02/27/21 16:35 Source: patient Mode of arrival: ambulatory History of Present Illness HPI Narrative: 61-year-old woman with a history of hydrocephalus comes to the emergency department complaining of headache, nausea, vomiting and diarrhea for the last 3 days. She was here yesterday for similar symptoms had IV fluids but her headache did not improve after Toradol. She states the headache is all over and that bright lights bother her eyes. She denies fever, weakness, numbness or tingling, shortness of breath, cough or cold symptoms, sore throat, back pain or abdominal pain or chest pain. Patient states that she has seen Dr. Cazares and erika within the last 2 years. MD elicited complaint: headache Onset (ago): day(s) (3) Onset description: gradually Location: diffuse Severity: severe Quality & Timing: throbbing Exacerbating factors: movement of head/neck and light Relieving factors: nothing Context: occurred at rest Associated symptoms: nausea, vomiting and photophobia Related Data Home Medications Medication Instructions Recorded Confirmed cyclobenzaprine 10 mg PO TID 10/08/19 02/27/21 hydroxyzine pamoate 25 mg PO DAILY 10/08/19 02/27/21 magnesium oxide 400 mg PO DAILY 10/08/19 02/27/21 metformin 500 mg PO DAILY 10/08/19 02/27/21 omeprazole 20 mg PO DAILY 10/08/19 02/27/21 sertraline 100 mg PO DAILY 10/08/19 02/26/21 trazodone 50 mg PO 10/08/19 02/26/21 ropinirole 0.25 mg PO HS 02/26/21 02/27/21 Allergies Allergy/AdvReac Type Severity Reaction Status Date / Time eucalyptus Allergy Severe ANAPHYLAXIS Verified 04/11/19 17:10 Penicillins Allergy Mild Rash Verified 04/11/19 17:10 adhesive Allergy Unknown BLISTERS Verified 04/11/19 17:10 diclofenac Allergy Unknown PT DOESNT Verified 04/11/19 17:10 KNOW Iodine and Iodide Containing Allergy Unknown Anaphylaxis Verified 10/08/19 11:05 Produc metaxalone Allergy Unknown PT DOESNT Verified 04/11/19 17:10 KNOW nabumetone Allergy Unknown PT DOESNT Verified 09/07/19 17:10 KNOW peanut Allergy Unknown Swelling Verified 10/08/19 11:05 Contrast Media Allergy Unknown ANAPHYLAXIS Uncoded 04/11/19 17:10 Review of Systems Review of Systems: All systems reviewed & are unremarkable except as noted in HPI and below Constitutional: Constitutional: Denies chills, Denies fever(s) and Denies weakness Eyes: Eyes: Denies change in vision and Reports photophobia ENT: Denies nasal congestion and Denies sore throat Cardiovascular: Cardiovascular: Denies chest pain Respiratory: Respiratory: Denies cough and Denies dyspnea Gastrointestinal: Gastrointestinal: Denies abdominal pain, Reports diarrhea and Reports vomiting Genitourinary: Genitourinary: Denies nocturia and Denies dysuria Musculoskeletal: Musculoskeletal: Reports back pain ( Chronic), Denies arthralgias and Denies joint swelling Integumentary/Breasts: Skin/Breast: Reports pruritus, Reports erythema and Reports rash Neurologic: Denies vertigo, Denies dizziness and Denies syncope Hematologic/Lymphatic: Hematologic/Lymphatic: Denies easy bleeding and Denies easy bruising Allergic/Immunologic: Allergic/Immunologic: Denies lip swelling and Denies throat swelling PMFSH Past Medical History Medical History Depression GERD (gastroesophageal reflux disease) Peripheral neuropathy Type 2 diabetes mellitus Surgical History Surgical History H/O knee surgery H/O oophorectomy H/O tubal ligation H/O: hysterectomy History of tonsillectomy Hx of breast reduction, elective Family History Family History Mother Family history of thyroid disease Sibling Diabetes mellitus Other Family history of allergic disorder Social History Social History (R
[2021-02-27] MEDS: HYDROmorphone HCL INJ (*CRX) 2 MG/ML VIAL 0.5 MG IV PUSH ×2 (16:49→19:00)
[2021-02-27] MEDS: SODIUM CHLORIDE 0.9% IV 1,000 ML 999 ML IV CONT (16:50)
[2021-02-27 17:07] LABS: Basophils Absolute Auto 0.03 K/mm3 (0.00-0.10); Basophils Percent Auto 0.4 % (0.0-1.0); Eosinophils Absolute Auto 0.05 K/mm3 (0.02-0.50); Eosinophils Percent Auto 0.6 % (1.0-6.0); Hematocrit 42.5 % (35.0-49.0); Hemoglobin 14.1 g/dL (12.0-15.0); Immature Granulocyte Absolute 0.03 K/mm3 (0.00-0.00); Immature Granulocyte Percent A 0.4 % (0.0-0.0); Lymphocytes Absolute Auto 2.74 K/mm3 (1.10-4.50); Lymphocytes Percent Auto 32.5 % (18.0-42.0); Mean Corpuscular HGB Conc 33.2 g/dL (32.0-36.0); Mean Corpuscular Hemoglobin 28.1 pg (27.0-31.0); Mean Corpuscular Volume 84.7 fL (78.0-102.0); Monocytes Absolute Auto 0.82 K/mm3 (0.10-0.90); Monocytes Percent Auto 9.7 % (2.0-11.0); Neutrophils Absolute Auto 4.8 K/mm3 (1.7-7.2); Neutrophils Percent Auto 56.4 % (50.0-70.0); Platelet Count Result 191 K/mm3 (150-420); Red Blood Count 5.02 M/mm3 (4.20-5.40); Red Cell Distribution Width 14.8 % (11.6-14.4); White Blood Count 8.4 K/mm3 (4.8-10.8)
[2021-02-27 17:22] LABS: Alanine Aminotransferase 18 U/L (14-59); Albumin Level 3.8 g/dL (3.4-5.0); Alkaline Phosphatase 61 U/L (46-116); Anion Gap 17 mmol/L (8-16); Aspartate Amino Transferase 15 U/L (15-37); Bilirubin,Total 0.4 mg/dL (0.00-1.00); Blood Urea Nitrogen 18 mg/dL (7-18); CRP 1.2 mg/dL (0.0-0.9); Calcium 9.3 mg/dL (8.5-10.1); Carbon Dioxide 21 mmol/L (21-32); Chloride 104 mmol/L (98-108); Estimated CRCL calculation 52 ml/min; Estimated Glomerular Filt Rate > 60; Glucose 132 mg/dL (70-99); Osmolality Calculated 297 mOsm/kg (285-295); Potassium 3.4 mmol/L (3.5-5.1); Sodium 142 mmol/L (136-145); Total Protein 7.5 g/dL (6.4-8.2)
[2021-02-27 17:23] LABS: Partial Thromboplastin Time 23.2 SEC (23.90-30.70); Prothrombin Time 10.3 Seconds (9.50-12.10)
[2021-02-27 17:28] LABS: Lactic Acid Reflex 1.9 mmol/L (0.4-2.0)
[2021-02-27 17:31] LABS: Influenza Control Valid (Valid)
[2021-02-27 18:23] VITALS: BP 142/70; PULSE 72; RESP 16; TEMP 36.4; O2SAT 96
[2021-02-27 18:56] LABS: SARS-CoV-2 RNA PCR Negative (Negative)
[2021-02-27] MEDS: METOCLOPRAMIDE HCL INJ 10 MG/2 ML VIAL IV PUSH (19:00)
--- NOTE | 2021-02-27 19:03 | PC.NURSE ---
patient talking and laughing with , drinking soda
--- NOTE | 2021-02-27 19:36 | PC.NURSE ---
[address] Sims neuro
[2021-02-27 20:30] VITALS: BP 140/88; PULSE 72; RESP 18; TEMP 36.4; O2SAT 95
== END 2021-02-27 20:32 | disposition home or self-care (01) ==
PROVIDERS: Emergency Provider Emergency Medicine; PCP Internal Medicine
DX: R51.9 Headache, unspecified (principal); Z20.822 Contact with and (suspected) exposure to COVID-19; K21.9 Gastro-esophageal reflux disease without esophagitis; E11.9 Type 2 diabetes mellitus without complications
CPT/HCPCS: 36415; 70450; 80053; 83605; 85025; 85610; 85730; 86140; 87040; 87804; 96361; 96374; 96375; 96376; 99283; 99284; C9803; J0330; J0360; J1170; J2250; J2765; J7030; U0003; U0005

== ENCOUNTER 2021-02-28 08:47 | Emergency (ER) | payer MEDICARE, SELFPAY ==
[2021-02-28] VITALS (9 sets, daily range): BP systolic 144–215; BP diastolic 73–107; PULSE 40–72; RESP 14–42; TEMP 36.3; O2SAT 95–100
--- NOTE | ~2021-02-28 | CT_ITS ---
EXAMINATION: CT brain wo con DATE: 02/28/2021 11:02 INDICATION: Altered mental status TECHNIQUE: Computed tomography (CT) of the head was performed without intravenous contrast. Sagittal and coronal reconstructions were performed. The mA was adjusted according to patient size. Iterative reconstruction technique was employed. The dose-length product was 681.00 mGy-cm. COMPARISON: head CT dated 02/27/21 FINDINGS: There is a intraparenchymal hemorrhage in the anteroinferior left frontal lobe which measures 2.6 x 3 .0 x 1.0 cm with smaller surrounding vasogenic edema. There is extension of hemorrhage the initial in to the anterior horn of the left lateral ventricle with extension into the occipital horn as well as into the right lateral ventricle, third ventricle and into the fourth ventricle with small amount of blood seen extending bilaterally across the foramen of Luschka on both the left and right. Again seen is prominent dilation of the ventricles however this appears to have increased since the prior study . For reference the distance across the central portion of the left and right lateral ventricles radha ure approximately 6.8 cm which previously measured 6.2 cm and the left right diameter of the fourth v entricle measures 3.3 cm which previously measured 2.0 cm. In addition there has been interval efface ment of the sulci as well as of the prepontine cistern. Findings are consistent with hydronephrosis d ue to entrapment. No acute infarction or abnormal extra axial fluid collection. There are postoperati ve change of prior occipital craniotomy. No abnormal masses identified. The orbits, paranasal sinuses and mastoid air cells are normal. IMPRESSION: 1. Left frontal lobe intraparenchymal hemorrhage with extension and large amount of blood throughout the lateral, third and fourth ventricles and extending into the bilateral foramina of Luschka. 2. Prominent ventriculomegaly which is significantly increased since the prior study along with effac ement of the sulci and prepontine cistern consistent with entrapment due to the intraventricular hemo rrhage. Emergent neurosurgical consultation is indicated. 3. Findings were discussed with Dr. Gonzales at 11:10 AM. Reviewed, dictated and finalized at location A. IMPRESSION: 1. Left frontal lobe intraparenchymal hemorrhage with extension and large amoun t of blood throughout the lateral, third and fourth ventricles and extending in to the bilateral foramina of Luschka. 2. Prominent ventriculomegaly which is significantly increased since the prior study along with effacement of the sulci and prepontine cistern consistent with entrapment due to the intraventricular hemorrhage. Emergent neurosurgical cons ultation is indicated. 3. Findings were discussed with Dr. Gonzales at 11:10 AM.
--- NOTE | ~2021-02-28 | XR_ITS ---
XR chest 1V portable 02/28/2021 11:05 Indication: Altered mental status. Shortness of breath. Procedure: AP portable chest Comparison: Comparison to multiple prior studies sequentially, with oldest reviewed study dated 02/2019. Findings: Cardiomegaly. Shallow inspiration with crowding of the pulmonary vasculature. There is asym metric soft tissue at the left apex medially, consistent with thoracic aortic ectasia seen on CT neck dated 02/27/2019. No acute focal pneumonia, edema or effusion. No pneumothorax. Impression: 1: No acute cardiopulmonary disease. Shallow inspiration. Reviewed, dictated and finalized at location A. Impression: 1: No acute cardiopulmonary disease. Shallow inspiration.
--- NOTE | ~2021-02-28 | XR_ITS ---
EXAMINATION: XR chest ET placement EXAM DATE: 02/28/2021 12:11 INDICATION: Post intubation. Respiratory failure. TECHNIQUE: Portable AP frontal chest x-ray was obtained. Comparison is made to prior examination from 02/28/2021. FINDINGS: Endotracheal tube tip is 3-4 centimeters above the merle. Some linear left basilar opaciti es probably atelectasis. There are no pleural effusions. Cardiac silhouette is prominent but magnifi ed on this AP technique. There is no pneumothorax suspected. The bones and soft tissues are unrema rkable. IMPRESSION: 1. Linear small left basilar opacities probably atelectasis. Can't exclude developing pneumonia. 2. ET tube in position. Reviewed, dictated and finalized at location B. IMPRESSION: 1. Linear small left basilar opacities probably atelectasis. Can't exclude deve loping pneumonia. 2. ET tube in position.
--- NOTE | 2021-02-28 09:16 | ED.HA ---
HPI - Headache General Chief Complaint: Headache Stated Complaint: HEADACHE Time Seen by Provider: 02/28/21 09:09 Source: patient, family and RN notes reviewed Mode of arrival: wheelchair Limitations: no limitations History of Present Illness HPI Narrative: Pt was seen in this ED 02/26/21 and 02/27/21 for similar GAYTAN. She was worked up and got good relief from narcotic meds. no acute vomiting today. she will see Neurologist for review EVIE. elicited complaint: headache Pertinent past history: migraines Onset (ago): hour(s) (2) Onset description: gradually Location: diffuse Severity: moderate Pain scale (0-10): 7 Quality & Timing: aching and throbbing Exacerbating factors: none Relieving factors: nothing Context: occurred at rest Associated symptoms: none Treatments prior to arrival: none Related Data Home Medications Medication Instructions Recorded Confirmed cyclobenzaprine 10 mg PO TID 10/08/19 02/28/21 hydroxyzine pamoate 25 mg PO DAILY 10/08/19 02/28/21 magnesium oxide 400 mg PO DAILY 10/08/19 02/28/21 metformin 500 mg PO DAILY 10/08/19 02/28/21 omeprazole 20 mg PO DAILY 10/08/19 02/28/21 sertraline 100 mg PO DAILY 10/08/19 02/28/21 trazodone 50 mg PO HS 10/08/19 02/28/21 ropinirole 0.25 mg PO HS 02/26/21 02/28/21 Allergies Allergy/AdvReac Type Severity Reaction Status Date / Time eucalyptus Allergy Severe ANAPHYLAXIS Verified 04/11/19 17:10 Penicillins Allergy Mild Rash Verified 04/11/19 17:10 adhesive Allergy Unknown BLISTERS Verified 04/11/19 17:10 diclofenac Allergy Unknown PT DOESNT Verified 04/11/19 17:10 KNOW Iodine and Iodide Containing Allergy Unknown Anaphylaxis Verified 10/08/19 11:05 Produc metaxalone Allergy Unknown PT DOESNT Verified 04/11/19 17:10 KNOW nabumetone Allergy Unknown PT DOESNT Verified 04/11/19 17:10 KNOW peanut Allergy Unknown Swelling Verified 10/08/19 11:05 Contrast Media Allergy Unknown ANAPHYLAXIS Uncoded 04/11/19 17:10 Review of Systems Review of Systems: All systems reviewed & are unremarkable except as noted in HPI and below Constitutional: Constitutional: Reports as per HPI and Reports no additional constitutional complaints Eyes: Eyes: Reports as per HPI and Reports no additional eye complaints ENT: Reports system reviewed and no additional complaints, except as documented and Reports as per HPI Cardiovascular: Cardiovascular: Reports as per HPI and Reports no additional cardiovascular complaints Respiratory: Respiratory: Reports as per HPI and Reports no additional respiratory complaints Gastrointestinal: Gastrointestinal: Reports as per HPI, Reports no additional gastrointestinal complaints and Reports nausea Genitourinary: Genitourinary: Reports no additional female genitourinary complaints and Reports as per HPI Musculoskeletal: Musculoskeletal: Reports no additional musculoskeletal complaints and Reports as per HPI Integumentary/Breasts: Skin/Breast: Reports system reviewed and no additional complaints, except as docu and Reports as per HPI Neurologic: Reports system reviewed and no additional complaints, except as documented and Reports as per HPI Psychiatric: Psychiatric: Reports no additional psychiatric complaints and Reports as per HPI Endocrine: Endocrine: Reports no additional endocrine complaints and Reports as per HPI Hematologic/Lymphatic: Hematologic/Lymphatic: Reports no additional hematologic/lymphatic complaints and Reports as per HPI Allergic/Immunologic: Allergic/Immunologic: Reports no additional allergic/immunologic complaints and Reports as per HPI PMF Past Medical History Medical History Depression GERD (gastroesophageal reflux disease) Peripheral neuropathy Type 2 diabetes mellitus Surgical History Surgical History H/O knee surgery H/O oophorectomy H/O tubal ligation H/O: hysterectomy History of
[2021-02-28] MEDS: ONDANSETRON HCL ODT 4 MG TABLET PO (09:22)
[2021-02-28] MEDS: MORPHINE SULFATE (*CRX) 4 MG/ML INJ IM (09:22)
--- NOTE | 2021-02-28 10:12 | PC.NURSE ---
Pt drowsy, opens eyes when asked, speaking softly. pt alert to person. pt reports that she is feeling better. edp aware of pts change in mentation. at bedside
--- NOTE | 2021-02-28 10:23 | ECG_ITS ---
Measurements Intervals [place] Rate: 41 P: -1 CT: 166 QRS: 27 QRSD: 96 T: 44 QT: 461 QTc: 384 Interpretive Statements SINUS BRADYCARDIA BORDERLINE T WAVE ABNORMALITY- ANTERIOR LEADS BASELINE ARTIFACT- I, II, III, AVR, AVL, AVF ABNORMAL ECG Electronically Signed On 02-28-2021 10:46:47 CDT by Vickey Ireland D.O.
[2021-02-28] MEDS: SODIUM CHLORIDE 0.9% IV 500 ML 999 ML IV CONT (10:34)
[2021-02-28 10:57] LABS: HCO3 ABG 19.4 mmol/L (23-29); PCO2 ABG 31.3 mmHg (35-45); PO2 ABG 86.7 mmHg (80-90); pH ABG 7.41 (7.35-7.45)
[2021-02-28 10:58] LABS: Basophils Absolute Auto 0.04 K/mm3 (0.00-0.10); Basophils Percent Auto 0.3 % (0.0-1.0); Eosinophils Absolute Auto 0.03 K/mm3 (0.02-0.50); Eosinophils Percent Auto 0.2 % (1.0-6.0); Hematocrit 40.4 % (35.0-49.0); Hemoglobin 13.2 g/dL (12.0-15.0); Immature Granulocyte Absolute 0.04 K/mm3 (0.00-0.00); Immature Granulocyte Percent A 0.3 % (0.0-0.0); Lymphocytes Absolute Auto 2.02 K/mm3 (1.10-4.50); Lymphocytes Percent Auto 15.6 % (18.0-42.0); Mean Corpuscular HGB Conc 32.7 g/dL (32.0-36.0); Mean Corpuscular Volume 85.6 fL (78.0-102.0); Monocytes Absolute Auto 1.03 K/mm3 (0.10-0.90); Neutrophils Absolute Auto 9.8 K/mm3 (1.7-7.2); Neutrophils Percent Auto 75.6 % (50.0-70.0); Platelet Count Result 213 K/mm3 (150-420); Red Blood Count 4.72 M/mm3 (4.20-5.40); Red Cell Distribution Width 14.6 % (11.6-14.4); White Blood Count 12.9 K/mm3 (4.8-10.8)
[2021-02-28 10:59] LABS: Device ROOM AIR; Modified Allen's Test Pass; Oxygen Saturation ABG 96.8 % (95-97); Site Drawn RIGHT RADIAL
--- NOTE | 2021-02-28 11:00 | PC.NURSE ---
PT PLACED ON NONREBREATHER MASK AT 15LITERS
--- NOTE | 2021-02-28 11:15 | PC.NURSE ---
erp speaking with radiologist at [facility], of patient brought to room to explain ct findings, requesting [place] for transfer. [facility] contacted and no beds available. [facility] in [place] contacted, [facility] called for transport.
[2021-02-28 11:16] LABS: Alanine Aminotransferase 19 U/L (14-59); Albumin Level 3.7 g/dL (3.4-5.0); Alkaline Phosphatase 57 U/L (46-116); Anion Gap 17 mmol/L (8-16); Aspartate Amino Transferase 17 U/L (15-37); Bilirubin,Total 0.5 mg/dL (0.00-1.00); Blood Urea Nitrogen 14 mg/dL (7-18); Calcium 8.9 mg/dL (8.5-10.1); Carbon Dioxide 22 mmol/L (21-32); Chloride 102 mmol/L (98-108); Estimated CRCL calculation 73 ml/min; Estimated Glomerular Filt Rate > 60; Glucose 199 mg/dL (70-99); Osmolality Calculated 298 mOsm/kg (285-295); Potassium 3.2 mmol/L (3.5-5.1); Sodium 141 mmol/L (136-145); Total Protein 7.2 g/dL (6.4-8.2)
[2021-02-28 11:16] LABS: Acetaminophen < 2 ug/mL (10-30); Ethanol < 3 mg/dL (0-6); Salicylate 0.9 mg/dL (2.8-20.0)
[2021-02-28 11:18] LABS: Add Urine Microscopic? YES; Appearance Urine Clear (Clear); Bilirubin Urine Negative (Negative); Blood Urine 1+ (Negative); Color Urine Light Yellow (Yellow); Glucose Urine UA Trace (Negative); Ketones Urine 1+ (Negative); Leukocyte Esterase Ur Negative (Negative); Nitrate Urine Negative (Negative); Protein Urine 1+ (Negative); Urobilinogen Urine 0.2 mg/dL (0.2-1.0); pH Urine 6.5 (5.0-8.0)
[2021-02-28 11:24] LABS: Bacteria Urine 1+ /hpf; Mucus Urine Few /lpf; Squamous Epithelial Cell Urine Few /hpf (Few); WBC Urine 0-3 /hpf (0-3)
--- NOTE | 2021-02-28 11:25 | PC.NURSE ---
Dr Gonzales speaking with Dr. Condon, neuro at [facility] in [place].
[2021-02-28 11:26] LABS: Amphetamine Screen Urine Negative (Negative); Barbiturate Screen Urine Negative (Negative); Benzodiazepines Screen Urine Negative (Negative); Cannabinoid Screen Urine Positive (Negative); Cocaine Screen Urine Negative (Negative); Methadone Screen Urine Negative (Negative); Opiate Screen Urine Positive (Negative); Phencyclidine Screen Urine Negative (Negative)
--- NOTE | 2021-02-28 11:30 | PC.NURSE ---
PT MOVED TO ER ROOM 7, PT HAVING PERIODS OF APNEA. HR 40, SPO2 95% ON NONREBREATHER. BEGAN ASSISTING VENTILATIONS WITH BVM.
--- NOTE | 2021-02-28 11:35 | PC.NURSE ---
REPORT TO SHYANNE MCCOY AT [facility].
[2021-02-28] MEDS: levETIRAcetam 1000MG/NACL100ML 1,000 MG/100 ML BAG 400 MG IVPB (11:45)
--- NOTE | 2021-02-28 11:45 | PC.NURSE ---
INTUBATION SET UP WITH RSI KIT AT BEDSIDE, RESPIRATORY AT BEDSIDE. PT GIVEN VERSED 5MG IVP VORB DR CELAYA AT 1146, PT THEN GIVEN 100 MG SUCCINYLCHOLINE 100MG AT [address] CELAYA. PT THEN INTUBATED WITH A 7.5 TUBE 22@ THE LIPS. BREATH SOUNDS HEARD BILATERALLY. ATTEMPTED OG/NG PLACEMENT, WITHOUT SUCCESS.
--- NOTE | 2021-02-28 11:50 | PC.NURSE ---
[facility] HERE TO TAKE PT TO [facility] ER.
[2021-02-28] MEDS: hydrALAZINE HCL 20 MG/ML VIAL 10 MG IV PUSH (11:55)
[2021-02-28] MEDS: MANNITOL 20% 500 ML 50 ML IV CONT (12:00)
--- NOTE | 2021-02-28 12:01 | PC.NURSE ---
CHEST XRAY TO CHECK TUBE PLACEMENT. 800ML EMPTIED FROM [employer].
== END 2021-02-28 12:10 | disposition short-term general hospital (02) ==
PROVIDERS: Emergency Provider Emergency Medicine; PCP Internal Medicine
DX: G43.009 Migraine without aura, not intractable, without status migrainosus (principal); G44.89 Other headache syndrome; Z79.899 Other long term (current) drug therapy; K21.9 Gastro-esophageal reflux disease without esophagitis; E11.9 Type 2 diabetes mellitus without complications
CPT/HCPCS: 31500; 36415; 36600; 70450; 71045; 80053; 80307; 81001; 82805; 85025; 93005; 96365; 96372; 96375; 99285; A9270; J0330; J0360; J1953; J2250; J2270; J7040